=== PATIENT | male | born 1990 | race Caucasian/White ===

== ENCOUNTER 2024-07-17 00:08 | Emergency (ER) | payer OTHER ==
[2024-07-17 00:16] VITALS: BP 138/89; PULSE 85; RESP 18; TEMP 97.9
== END 2024-07-17 00:39 | disposition home or self-care (01) ==
LOC: EC 00:08
DX: Z02.83 Encounter for blood-alcohol and blood-drug test (principal)
CPT/HCPCS: 99499

== ENCOUNTER → 2024-08-15 | Outpatient (CLI) | payer OTHER ==
--- NOTE | 2024-08-17 07:55 | MR ---
EXAMINATION TYPE: MR lumbar spine wo/w con DATE OF EXAM: 08/15/2024 10:05 PM COMPARISON: None. CLINICAL INDICATION: Male, 33 years old with history of M54.31; PHH, Low back pain that radiates down right leg/groin and down to toes TECHNIQUE: Multi planar, multi sequence imaging was performed utilizing: T1-weighted, T2-weighted, a nd turbo inversion recovery imaging of the lumbar spine. IV Contrast: 9 mL Gadobutrol (None, if empty) FINDINGS: Alignment: The lumbar vertebral bodies have preserved heights and alignment. Cord: The conus medullaris and the distal spinal cord appear unremarkable with regards to their signa l intensity and morphology. Bones/Discs: Minimal disc degeneration changes worse at L4-L5 and L5-S1 with disc space narrowing, os teophytes. No abnormal inversion recovery signal to suggest bony edema. T12-L1: No evidence of significant spinal canal stenosis or neural foraminal stenosis. L1-L2: No evidence of significant spinal canal stenosis or neural foraminal stenosis. L2-L3: No evidence of significant spinal canal stenosis or neural foraminal stenosis. L3-L4: No evidence of significant spinal canal stenosis or neural foraminal stenosis. L4-L5: Right foraminal/right central disc extrusion with inferior migration up to 9 mm. This abuts th e nerve roots on the right in the thecal sac. No significant neural foraminal stenosis or spinal mary carmen l stenosis. L5-S1: The disc has a rounded posterior morphology without significant spinal canal stenosis. Facet j oint arthropathy with mild bilateral neural foraminal stenosis. No significant spinal canal or neural foraminal stenosis in the remainder of the visualized levels. Other findings: None. IMPRESSION: L4-L5 right foraminal/right central disc extrusion with inferior migration abutting multiple nerve ro ots. No significant spinal canal or neural foraminal stenosis. No abnormal postcontrast enhancement. [facility], , 08/17/2024 7:53 AM
== END | disposition home or self-care (01) ==
LOC: RADMRIMAIN 21:00
PROVIDERS: ATTEND Family Medicine
DX: M51.26 Other intervertebral disc displacement, lumbar region (principal); M54.31 Sciatica, right side
CPT/HCPCS: 72158; A9585